=== PATIENT | male | born 1955 | race African-American/Black ===

== ENCOUNTER 2017-12-13 08:59 | Inpatient (IN) ==
[2017-12-13] MEDS ORDERED: ASPIRIN 325 MG TABLET PO STA (09:44)
[2017-12-13 09:53] LABS: Basophils % 0.1 % (0.0-0.8); Hematocrit 43.4 VOL% (42.0-52.0); Hemoglobin 14.6 GM/DL (14.0-18.0); Immature Granulocytes % 0.3 %; Immature Granulocytes Absolute 0.03 #; Lymphocytes # 0.9 10*3/uL (1.4-4.0); Lymphocytes % 8.8 % (21.2-54.2); Mean Corpuscular HGB Conc 33.6 GM/DL (32-36); Mean Corpuscular Hemoglobin 31 PG (27-34); Mean Platelet Volume 11.4 FL (9.6-12.0); Monocytes # 0.4 10*3/uL (0.11-0.8); Monocytes % 3.9 % (1.7-12.7); Neutrophils # 8.6 10*3/uL (1.4-7.4); Neutrophils % 86.9 % (38.7-73.9); Platelet Count 255 T/CUMM (130-400); Red Blood Count 4.77 MC/CUMM (3.8-5.5); Red Cell Distribution Width 12.7 % (9.3-17.3); White Blood Count 9.9 T/CUMM (4-12)
[2017-12-13 09:59] LABS: Calcium 8.9 MG/DL (8.5-10.1); Potassium 3.7 MMOL/L (3.5-5.1)
[2017-12-13] MEDS ORDERED: ASPIRIN 325 MG TABLET ONE (10:04)
[2017-12-13] MEDS ORDERED: amLODIPine 5 MG TABLET PO STA (10:33)
[2017-12-13] MEDS ORDERED: ONDANSETRON 4 MG/2 ML VIAL ONE (10:45)
[2017-12-13] MEDS ORDERED: ONDANSETRON 4 MG/2 ML VIAL IV STA (10:46)
[2017-12-13] MEDS ORDERED: amLODIPine 5 MG TABLET ONE (10:54)
[2017-12-13] MEDS ORDERED: PROMETHAZINE 25 MG/1 ML VIAL ONE (11:39)
[2017-12-13] MEDS ORDERED: PROMETHAZINE 25 MG/1 ML VIAL IM STA (11:46)
[2017-12-13] MEDS ORDERED: LABETALOL 20 MG/4 ML SYRINGE IV STA (12:07)
[2017-12-13] MEDS ORDERED: LABETALOL 20 MG/4 ML SYRINGE IV ONE ×2 (12:14→12:43)
[2017-12-13] MEDS ORDERED: ALBUTEROL 2.5 MG/3 ML NEB RESP TX PRN (13:55)
[2017-12-13] MEDS ORDERED: hydrALAZINE 20 MG/1 ML VIAL IV PRN (14:00)
[2017-12-13] MEDS ORDERED: hydrALAZINE 20 MG/1 ML VIAL IV STA (14:24)
[2017-12-13] MEDS: LISINOPRIL/HCTZ 10-12.5 MG TABLET PO SCH (16:16)
[2017-12-13 16:45] LABS: Troponin I Only < 0.015 NG/ML (0.00-0.045)
[2017-12-13] MEDS ORDERED: niCARdipine INJ 25 MG in SODIUM CHLORIDE 0.9% 240 ML IV PRN (17:17)
[2017-12-13] MEDS: ATORVASTATIN 40 MG TABLET PO SCH (20:29)
[2017-12-13 21:58] LABS: Troponin I Only < 0.015 NG/ML (0.00-0.045)
[2017-12-13 22:49] LABS: Apearance,Urine CLEAR (Clear); Bilirubin,Urine Negative (Negative); Blood, Urine Small mg/dL (Negative); Glucose,Urine (UA) Negative (Negative); Ketones,Urine Negative (Negative); Mucus,Urine Moderate /LPF (Occasional); Nitrite,Urine Negative (Negative); Protein,Urine Negative; RBC,Urine 3 /HPF (0-4); Urine Color Yellow (Yellow); Urine Specific Gravity > 1.060 (1.001-1.035); Urine Urobilinogen < 2.0 EU/DL (0.2-1.0); WBC,Urine 1 /HPF (0-6)
[2017-12-14 04:38] LABS: Basophils % 0.2 % (0.0-0.8); Eosinophils % 0.3 % (0.00-10.9); Hematocrit 39.4 VOL% (42.0-52.0); Hemoglobin 13.4 GM/DL (14.0-18.0); Immature Granulocytes % 0.2 %; Immature Granulocytes Absolute 0.02 #; Lymphocytes # 1.7 10*3/uL (1.4-4.0); Lymphocytes % 16.6 % (21.2-54.2); Mean Corpuscular Hemoglobin 31 PG (27-34); Mean Corpuscular Volume 91.2 FL (87-102); Mean Platelet Volume 10.8 FL (9.6-12.0); Monocytes # 0.7 10*3/uL (0.11-0.8); Monocytes % 7.2 % (1.7-12.7); Neutrophils # 7.6 10*3/uL (1.4-7.4); Neutrophils % 75.5 % (38.7-73.9); Platelet Count 244 T/CUMM (130-400); Red Blood Count 4.32 MC/CUMM (3.8-5.5); Red Cell Distribution Width 12.9 % (9.3-17.3)
[2017-12-14 05:18] LABS: Calcium 8.3 MG/DL (8.5-10.1); Osmolality,Calculated 270.2 MOS/KG (273-304); Potassium 3.5 MMOL/L (3.5-5.1); Risk Ratio 5.39; VLDL CHOLESTEROL 25.6 MG/DL
[2017-12-14] MEDS: LISINOPRIL/HCTZ 10-12.5 MG TABLET PO SCH (08:00)
[2017-12-14] MEDS: amLODIPine 5 MG TABLET PO SCH (08:00)
[2017-12-14] MEDS: PANTOPRAZOLE 40 MG TABLET PO SCH (08:00)
[2017-12-14] MEDS: ATORVASTATIN 40 MG TABLET PO SCH (20:19)
[2017-12-15 05:08] LABS: Basophils % 0.3 % (0.0-0.8); Eosinophils % 0.2 % (0.00-10.9); Hematocrit 41.4 VOL% (42.0-52.0); Hemoglobin 13.6 GM/DL (14.0-18.0); Immature Granulocytes % 0.2 %; Immature Granulocytes Absolute 0.02 #; Lymphocytes # 1.4 10*3/uL (1.4-4.0); Lymphocytes % 14.4 % (21.2-54.2); Mean Corpuscular HGB Conc 32.9 GM/DL (32-36); Mean Corpuscular Hemoglobin 30 PG (27-34); Mean Platelet Volume 10.7 FL (9.6-12.0); Monocytes # 0.6 10*3/uL (0.11-0.8); Monocytes % 5.9 % (1.7-12.7); Neutrophils # 7.8 10*3/uL (1.4-7.4); Platelet Count 245 T/CUMM (130-400); Red Cell Distribution Width 12.6 % (9.3-17.3); White Blood Count 9.9 T/CUMM (4-12)
[2017-12-15 05:22] LABS: PT Patient Result 10.7 SECS
[2017-12-15 05:35] LABS: Calcium 8.6 MG/DL (8.5-10.1); Osmolality,Calculated 274.1 MOS/KG (273-304); Potassium 3.9 MMOL/L (3.5-5.1)
[2017-12-15] MEDS: amLODIPine 5 MG TABLET PO SCH (09:43)
[2017-12-15] MEDS: PANTOPRAZOLE 40 MG TABLET PO SCH (09:44)
[2017-12-15] MEDS: LISINOPRIL/HCTZ 10-12.5 MG TABLET PO SCH (09:44)
[2017-12-15] MEDS: ONDANSETRON 4 MG/2 ML VIAL IV PRN (16:03)
[2017-12-15] MEDS: ATORVASTATIN 40 MG TABLET PO SCH (20:09)
[2017-12-16] MEDS: PANTOPRAZOLE 40 MG TABLET PO SCH (09:25)
[2017-12-16] MEDS: amLODIPine 5 MG TABLET PO SCH (09:25)
[2017-12-16] MEDS: LISINOPRIL/HCTZ 10-12.5 MG TABLET PO SCH (09:25)
[2017-12-16] MEDS: hydrALAZINE 10 MG TABLET PO SCH ×2 (14:39→20:29)
[2017-12-16] MEDS: ATORVASTATIN 40 MG TABLET PO SCH (20:29)
[2017-12-16] MEDS: ONDANSETRON 4 MG/2 ML VIAL IV PRN (20:29)
[2017-12-17 05:10] LABS: Basophils % 0.5 % (0.0-0.8); Eosinophils # 0.1 10*3/uL (0.0-0.87); Eosinophils % 0.7 % (0.00-10.9); Hematocrit 40.5 VOL% (42.0-52.0); Hemoglobin 14.2 GM/DL (14.0-18.0); Immature Granulocytes Absolute 0.09 #; Lymphocytes # 1.8 10*3/uL (1.4-4.0); Lymphocytes % 19.9 % (21.2-54.2); Mean Corpuscular HGB Conc 35.1 GM/DL (32-36); Mean Corpuscular Hemoglobin 31 PG (27-34); Mean Corpuscular Volume 89.2 FL (87-102); Mean Platelet Volume 11.2 FL (9.6-12.0); Monocytes # 0.7 10*3/uL (0.11-0.8); Monocytes % 8.1 % (1.7-12.7); Neutrophils # 6.2 10*3/uL (1.4-7.4); Neutrophils % 69.8 % (38.7-73.9); Platelet Count 265 T/CUMM (130-400); Red Blood Count 4.54 MC/CUMM (3.8-5.5); Red Cell Distribution Width 12.2 % (9.3-17.3); White Blood Count 8.8 T/CUMM (4-12)
[2017-12-17 05:22] LABS: Calcium 8.7 MG/DL (8.5-10.1); Osmolality,Calculated 271.2 MOS/KG (273-304); Potassium 3.7 MMOL/L (3.5-5.1)
[2017-12-17 05:31] LABS: T4 (Thyroxine) 7.4 UG/DL (4.7-13.3); Thyroid Stimulating Hormone 0.591 uIU/ml (0.358-3.74)
[2017-12-17] MEDS: LISINOPRIL/HCTZ 10-12.5 MG TABLET PO SCH (08:58)
[2017-12-17] MEDS: amLODIPine 5 MG TABLET PO SCH (08:58)
[2017-12-17] MEDS: hydrALAZINE 10 MG TABLET PO SCH (08:59)
[2017-12-17] MEDS: PANTOPRAZOLE 40 MG TABLET PO SCH (08:59)
[2017-12-17 12:49] VITALS: BP 124/68
== END 2017-12-17 13:35 | disposition home or self-care (01) | DRG 65 ==
LOC: N.ED 08:59 → SUATTDRO 13:55 → N.EDINP 13:55 → N.ICU 15:30
PROVIDERS: ADMIT Family Medicine